=== PATIENT | female | born 1990 | race African-American/Black ===

== ENCOUNTER 2017-07-02 09:02 | Day surgery (SDC) | payer OTHER ==
[~2017-07-02] VITALS: Ht 157.5 cm; Wt 63.5 kg
[~2017-07-02 09:02] MED LIST: MELA5TAB20 PO
[2017-07-02] MEDS ORDERED: LR 1,000 ML IV ONE (09:15)
[2017-07-02 09:30] LABS: MEAN CORPUSCULAR HEMOGLOBIN 30.6 pg (27.0-33.0); MEAN CORPUSCULAR HGB CONC 34.6 g/dl (32.0-36.5); MEAN CORPUSCULAR VOLUME 88.3 fl (80.0-96.0); RED CELL DISTRIBUTION WIDTH 13.1 % (11.5-14.5)
[2017-07-02 09:44] LABS: CONTROL LINE HCG INT CTR LINE PRESENT
[2017-07-02] MEDS ORDERED: LIDOCAINE W/EPINEPHRINE 1% 20ML VIAL As Ordered ONE (10:58)
[2017-07-02] MEDS ORDERED: PROPOFOL 200 MG/20 ML VIAL As Ordered ONE ×2 (10:59→11:19)
[2017-07-02] MEDS ORDERED: fentaNYL 100 MCG/2 ML INJECTION (J3010) As Ordered ONE (10:59)
[2017-07-02] MEDS ORDERED: MIDAZOLAM INJ 2 MG/2 ML VIAL (J2250) As Ordered ONE (10:59)
[2017-07-02] MEDS ORDERED: dexameTHASONE 4 MG/ML 1ML VIAL (J1100) As Ordered ONE (11:02)
[2017-07-02] MEDS ORDERED: ONDANSETRON 4MG/2ML VIAL (J2405) As Ordered ONE (11:02)
[2017-07-02] MEDS ORDERED: KETOROLAC 60 MG/2 ML VIAL (J1885) As Ordered ONE (11:02)
[2017-07-02] MEDS ORDERED: SILVER NITRATE APPLICATOR As Ordered ONE (11:19)
[2017-07-02] MEDS ORDERED: fentaNYL 100 MCG/2 ML INJECTION (J3010) IV PRN (12:00)
[2017-07-02] MEDS ORDERED: METOCLOPRAMIDE INJ 10MG/2ML VIAL (J2765) IV PRN (12:00)
[2017-07-02] MEDS ORDERED: ONDANSETRON 4MG/2ML VIAL (J2405) IV PRN (12:00)
[2017-07-02] MEDS ORDERED: PERCOCET 5MG/325MG TAB PO PRN (12:00)
[2017-07-02] MEDS ORDERED: LR 1,000 ML IV SCH (12:00)
[2017-07-02 12:30] VITALS: BP 126/66
--- NOTE | 2017-07-02 19:57 | RO ---
DATE OF PROCEDURE: 07/02/2017 PREPROCEDURE DIAGNOSIS: Missed . POSTPROCEDURE DIAGNOSIS: Missed . PROCEDURE: Suction, dilation and curettage. SURGEON: Dr. Johnny Chambers FAMILY REUNIFICATION SPECIALIST: ANESTHESIA: MAC. ESTIMATED BLOOD LOSS: 50 mL. DRAINS: None. FLUIDS REPLACED: 700 mL of lactated Ringer's. ANTIBIOTICS: Postoperative doxy course given. SPECIMENS: Products of conception. INDICATION FOR PROCEDURE: The patient had no growth on ultrasound over 2-3 weeks , and criteria met for missed . Declined watchful awaiting or misoprostol induction of miscarriage and elected for suction, dilation and curettage. Informed consent was obtained last week. On the day of the procedure, there were no changes. DESCRIPTION OF PROCEDURE: The patient was taken to the operating room with an IV in place, placed in the low lithotomy position without difficulty. Exam under anesthesia revealed adequate anesthesia and an axial uterus with no adnexal masses. She was prepped and draped in the normal sterile fashion. A tenaculum was placed on the anterior lip of the cervix. The cervix was then sequentially dilated up to #18-Yi. An 8 mm curved suction curette was then placed into the intrauterine cavity and with successive spinning and slight in and out movements, a moderate amount of tissue was removed from the intrauterine cavity. This was repeated several times, each time with less tissue and less blood noted. The suction curette was removed, a sharp curette was placed and a gentle scraping of the inner endometrial cavity was performed in all four quadrants until a gritty texture was noted throughout. The suction curette was introduced one more time and with sequential in, out and spinning maneuvers, no further tissue or blood was noted. The tenaculum was removed from the anterior lip of the cervix. A small amount of silver nitrate was needed to obtain hemostasis and all instruments removed from the vagina. The patient was awakened from MAC anesthesia and transferred to the post-anesthesia care unit (PACU) in stable condition. She will be sent home on Motrin as needed, Tylenol #3, docusate and doxycycline. [facility]
== END 2017-07-02 12:50 | disposition home or self-care (01) ==
LOC: M SDC 09:02
PROVIDERS: ATTEND Obstetrics & Gynecology
DX: O02.1 Missed abortion (principal)
CPT/HCPCS: 36415; 59820; 84703; 85027; 86850; 86900; 86901; 88305; J1100; J1885; J2250; J2405; J3010

== ENCOUNTER 2017-07-08 16:19 | Emergency (ER) | payer OTHER ==
[~2017-07-08] VITALS: Ht 157.5 cm; Wt 63.6 kg
[2017-07-08] MEDS ORDERED: NS 1,000 ML IV ONE (18:00)
[2017-07-08 18:41] LABS: BASO % 0.7 % (0.0-1.0); EOS # 0.1 K/mm3 (0.0-0.50); EOS % 2.8 % (0.0-3.0); LARGE UNSTAINED CELL # 0.1 K/mm3 (0.0-0.4); LARGE UNSTAINED CELL % 2.1 % (0.0-4.0); LYMPH # 1.8 K/mm3 (1.5-6.5); LYMPH % 35.5 % (24.0-44.0); MEAN CORPUSCULAR HGB CONC 34.3 g/dl (32.0-36.5); MEAN CORPUSCULAR VOLUME 90.4 fl (80.0-96.0); MONO # 0.2 K/mm3 (0.0-0.8); MONO % 4.7 % (0.0-5.0); NEUTROPHILS # 2.7 K/mm3 (1.8-7.7); NEUTROPHILS % 54.2 % (36.0-66.0); PLATELET COUNT, AUTOMATED 259 k/mm3 (150-450); RED CELL DISTRIBUTION WIDTH 13.4 % (11.5-14.5); WHITE BLOOD COUNT 5.1 K/mm3 (4.0-10.0)
--- NOTE | 2017-07-08 18:50 | REPUSA ---
Clinical history: Pain. Bleeding. Findings: Real-time transabdominal and transvaginal ultrasound images of the pelvis were obtained. A retroverted uterus is noted, measuring 8.0 x 5.2 x 6.4 cm. The uterus demonstrates normal echotexture and echogenicity. The endometrial stripe measures 2 mm and is within normal limits. The right ovary measures 4.4 x 1.7 x 3.1 cm. The left ovary measures 3.3 x 2.2 x 2.1 cm. No adnexal masses are seen. Color Doppler flow is seen within both ovaries. There is trace amount of free fluid. Impression: Unremarkable ultrasound examination of the pelvis.
[2017-07-08 19:01] LABS: ALBUMIN 3.7 GM/DL (3.2-5.2); ALBUMIN/GLOBULIN RATIO 1.06 (1.00-1.93); ALKALINE PHOSPHATASE 44 U/L (45-117); ALT/SGPT 24 U/L (12-78); ANION GAP 5 MEQ/L (8-16); AST/SGOT 18 U/L (15-37); BILIRUBIN,DIRECT < 0.1 MG/DL (0.0-0.2); BILIRUBIN,TOTAL 0.2 MG/DL (0.2-1.0); BLOOD UREA NITROGEN 14 MG/DL (7-18); CARBON DIOXIDE LEVEL 30 MEQ/L (21-32); CHLORIDE LEVEL 110 MEQ/L (98-107); CREATININE FOR GFR 0.67 MG/DL (0.55-1.02); GLOMERULAR FILTRATION RATE > 60.0 (>60); GLUCOSE, FASTING 81 MG/DL (70-105); POTASSIUM SERUM 4.3 MEQ/L (3.5-5.1); SODIUM LEVEL 145 MEQ/L (136-145); TOTAL PROTEIN 7.2 GM/DL (6.4-8.2)
[2017-07-08 19:46] LABS: HCG, SERUM QUANTITATIVE 745 MIU/ML
[2017-07-08] MEDS ORDERED: ZOFR4TAB3 PO (20:02)
[2017-07-08 20:10] VITALS: BP 128/74
== END 2017-07-08 20:16 | disposition home or self-care (01) ==
LOC: M ED 16:19
DX: N93.9 Abnormal uterine and vaginal bleeding, unspecified (principal)